=== PATIENT | female | born 1995 | race Caucasian/White ===

== ENCOUNTER 2018-10-01 16:42 | Emergency (ER) | payer BC, MEDICAID ==
--- NOTE | 2018-10-01 17:36 | EDM.PDOC ---
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 Pt is 8 weeks preg and had normal US last week. Monday evening she was fishing and had moderate cramping pelvic pain. She drank water and ate and these pains resolved. last evening the cramping returned and currently she has a dull ache. mild nausea without emesis over the last 2 weeks. denies vaginal discharge. 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: - Past Surgical History HEENT Surgical History: Reports: Adenoidectomy, Tonsillectomy GI Surgical History: Reports: Cholecystectomy Social & Family History - Tobacco Use Smoking Status *Q: Former Smoker Used Tobacco, but Quit: Yes Month/Year Tobacco Last Used: 2018 - Caffeine Use Caffeine Use: Reports: Soda - Recreational Drug Use Recreational Drug Use: No ED ROS GENERAL - Review of Systems Review Of Systems: See Below Constitutional: Denies: Fever, Chills, Fatigue Respiratory: Denies: Shortness of Breath, Wheezing Cardiovascular: Denies: Chest Pain GI/Abdominal: Reports: Abdominal Pain, Nausea. Denies: Constipation, Diarrhea : Denies: Discharge, Dysuria, Flank Pain ED EXAM - Physical Exam Exam: See Below Exam Limited By: No Limitations General Appearance: Alert, WD/WN, No Apparent Distress Respiratory/Chest: No Respiratory Distress, Lungs Clear, Normal Breath Sounds. No: Crackles, Rhonchi, Wheezing Cardiovascular: Regular Rate, Rhythm, No Murmur GI/Abdominal Exam: Normal Bowel Sounds, Soft, Non-Tender, No Organomegaly, No Distention Neurological: Alert, Oriented Skin Exam: Warm, Dry, Intact Course - Vital Signs Last Recorded V/S: Last Vital Signs Temp 35.9 C 10/01/18 17:14 Pulse 68 10/01/18 17:14 Resp 16 10/01/18 17:14 BP 121/78 10/01/18 17:14 Pulse Ox 98 10/01/18 17:14 - Orders/Labs/Meds Orders: Active Orders 24 hr Category Date Time Status OB Ltd 1 or More Fetus [US] Stat Exams 10/01/18 17:51 Ordered Labs: Laboratory Tests 10/01/18 Range/Units 17:29 Urine Color Yellow Urine Appearance Clear Urine pH 5.0 (4.5-8.0) Ur Specific Brandon 1.025 (1.008-1.030) Urine Protein Negative (NEGATIVE) mg/dL Urine Glucose (UA) Normal (NEGATIVE) mg/dL Urine Ketones Negative (NEGATIVE) mg/dL Urine Occult Blood Negative (NEGATIVE) Urine Nitrite Negative (NEGATIVE) Urine Bilirubin Negative (NEGATIVE) Urine Urobilinogen Normal (NORMAL) mg/dL Ur Leukocyte Esterase Negative (NEGATIVE) Urine RBC 0-5 (0-5) Urine WBC 0-5 (0-5) Ur Epithelial Cells Few Amorphous Sediment Few Urine Bacteria Not seen Urine Mucus Not seen - Re-Assessments/Exams Free Text/Narrative Re-Assessment/Exam: 10/01/18 18:31 US shows normal preg with HR 160. encouraged fluids and rest. Departure - Departure Time of Disposition: 18:31 Disposition: Home, Self-Care 01 Condition: Good Clinical Impression: Pain in pelvis - Discharge Information *PRESCRIPTION DRUG MONITORING PROGRAM REVIEWED*: Not Applicable *COPY OF PRESCRIPTION DRUG MONITORING REPORT IN PATIENT LEEANNE: Not Applicable Instructions: Pelvic Pain, Female, [id number] Referrals: Emelia Farias PA-C [Primary Care Provider] - Forms: ED Department Discharge Additional Instructions: follow-up with your OB doctor as needed increase fluid intake with goal of 1.5 L of fluid per day Rest - My Orders Last 24 Hours: My Active Orders 10/01/18 17:51 OB Ltd 1 or More Fetus [US] Stat - Assessment/Plan Last 24 Hours: My Active Orders 10/01/18 17:51 OB Ltd 1 or More Fetus [US] Stat
--- NOTE | 2018-10-01 19:13 | CRLUS ---
INDICATION: Cramping. FINDINGS: Transabdominal imaging. Anteverted uterus. Single intrauterine gestation. Normal appearance of maternal ovaries. Normal yolk sac at 4 mm. Roberts-rump length of 1.1 cm yields estimated gestational age 7 weeks 2 days and estimated date of delivery 18 May 2019. M-mode heart rate 165 beats per minute. No subchorionic hemorrhage is evident. IMPRESSION: 7 week 2 day intrauterine gestation. No sonographic abnormality to account for cramping identified. Dictated by Karlos Baker MD @ Oct 01 2018 7:09PM Signed by Dr. Karlos Baker @ Oct 01 2018 7:11PM
== END 2018-10-01 18:43 | disposition home or self-care (01) ==
LOC: JP.ED 16:42
DX: O99.89 Other specified diseases and conditions complicating pregnancy, childbirth and the puerperium (principal); R10.2 Pelvic and perineal pain; Z98.890 Other specified postprocedural states; Z90.49 Acquired absence of other specified parts of digestive tract; Z87.891 Personal history of nicotine dependence; Z88.8 Allergy status to other drugs, medicaments and biological substances; Z3A.01 Less than 8 weeks gestation of pregnancy
CPT/HCPCS: 76815; 81001; 99284-25